=== PATIENT | male | born 1980 | race Caucasian/White ===

== ENCOUNTER → 2018-05-27 07:16 | Outpatient (CLI) | payer OTHER | END | disposition home or self-care (01) | LOC: D.CT 07:16 | DX: S13.4XXA Sprain of ligaments of cervical spine, initial encounter (principal); W06.XXXA Fall from bed, initial encounter; Y93.89 Activity, other specified; Y92.143 Cell of prison as the place of occurrence of the external cause ==

== ENCOUNTER → 2018-08-25 07:43 | Outpatient (CLI) | payer OTHER | END | disposition home or self-care (01) | LOC: D.MRI 07:43 | DX: S19.9XXA Unspecified injury of neck, initial encounter (principal); W06.XXXA Fall from bed, initial encounter; Y93.89 Activity, other specified; Y92.143 Cell of prison as the place of occurrence of the external cause ==